=== PATIENT | female | born 1990 | race Caucasian/White ===

== ENCOUNTER → 2016-05-22 | Outpatient (CLI) | payer OTHER ==
[~2016-05-22] MED LIST: BUDE0.09; DICY10CA12 PO; HYDR-5688 PO; ONDA4TAB10 SL; ONDA4TAB46 PO; PNT500 PO; PRED10TA PO
[2016-05-22 10:00] LABS: BASO % 0.3 %; BASO ABS # 0.02 K/uL (0-0.2); COMPLETE YES; EOS % 2.4 %; HEMATOCRIT 37.2 % (37-47); IG% 0.2 %; LYMPH % 32.6 %; LYMPH ABS # 1.93 K/uL (1.2-3.4); MEAN CELL VOLUME 93.2 fL (80-100); MEAN CORPUSCULAR HEMOGLOBIN 31.6 pg (25-34); MEAN CORPUSCULAR HGB CONC 33.9 g/dl (32-36); MEAN PLATELET VOLUME 10.8 fL (7.4-10.4); MONO % 8.6 %; NEUT % 55.9 %; PLATELET COUNT 193 K/uL (130-400); RED BLOOD COUNT 3.99 M/uL (4.2-5.4); WHITE BLOOD COUNT 5.92 K/uL (4.8-10.8)
[2016-05-22 10:09] LABS: ALT/SGPT 22 U/L (12-78); AST/SGOT 19 U/L (15-37); BLOOD UREA NITROGEN 9 mg/dl (7-18); BUN/CREATININE RATIO 12.1 (10-20); CALCIUM 8.8 mg/dl (8.5-10.1); CARBON DIOXIDE 32 mmol/L (21-32); CHLORIDE 108 mmol/L (98-107); CREATININE 0.77 mg/dl (0.60-1.20); GLUCOSE 74 mg/dl (70-99); POTASSIUM 3.9 mmol/L (3.5-5.1); SODIUM 143 mmol/L (136-145)
[2016-05-22 10:11] LABS: ALB/GLOB RATIO 1.3 (0.9-2); ALKALINE PHOSPHATASE 45 U/L (45-117); C-REACTIVE PROTEIN < 0.29 mg/dl (0-0.29)
== END | disposition home or self-care (01) ==
LOC: C.LAB1850 09:10
PROVIDERS: ATTEND Registered Nurse
DX: K62.5 Hemorrhage of anus and rectum (principal)

== ENCOUNTER → 2016-09-26 | Outpatient (CLI) | payer OTHER ==
[2016-09-26 10:28] LABS: BASO ABS # 0.05 K/uL (0-0.2); COMPLETE YES; EOS % 1.4 %; LYMPH % 36.2 %; LYMPH ABS # 1.83 K/uL (1.2-3.4); MEAN CELL VOLUME 98.7 fL (80-100); MEAN CORPUSCULAR HEMOGLOBIN 32.7 pg (25-34); MEAN CORPUSCULAR HGB CONC 33.2 g/dl (32-36); MEAN PLATELET VOLUME 10.7 fL (7.4-10.4); MONO % 8.1 %; NEUT % 53.3 %; PLATELET COUNT 246 K/uL (130-400); RED BLOOD COUNT 3.85 M/uL (4.2-5.4); WHITE BLOOD COUNT 5.05 K/uL (4.8-10.8)
[2016-09-26 10:54] LABS: ALT/SGPT 19 U/L (12-78); BLOOD UREA NITROGEN 14 mg/dl (7-18); BUN/CREATININE RATIO 17.7 (10-20); C-REACTIVE PROTEIN < 0.29 mg/dl (0-0.29); CALCIUM 9.3 mg/dl (8.5-10.1); CARBON DIOXIDE 27 mmol/L (21-32); CHLORIDE 106 mmol/L (98-107); CREATININE 0.78 mg/dl (0.60-1.20); GLUCOSE 66 mg/dl (70-99); SODIUM 139 mmol/L (136-145)
[2016-09-26 10:57] LABS: ALB/GLOB RATIO 1.3 (0.9-2); ALKALINE PHOSPHATASE 47 U/L (45-117); AST/SGOT 12 U/L (15-37)
== END | disposition home or self-care (01) ==
LOC: C.LAB1850 09:18
PROVIDERS: ATTEND Internal Medicine
DX: K50.814 Crohn's disease of both small and large intestine with abscess (principal)

== ENCOUNTER → 2016-10-02 | Outpatient (CLI) | payer OTHER | END | disposition home or self-care (01) | LOC: C.LAB1850 10:22 | PROVIDERS: ATTEND Internal Medicine | DX: R10.9 Unspecified abdominal pain (principal); K50.814 Crohn's disease of both small and large intestine with abscess ==

== ENCOUNTER → 2016-11-06 | Outpatient (CLI) | payer OTHER ==
[~2016-11-06] MED LIST changes: +GADAVIST IV PRN; +GLUCAGON FOR INJ 1 MG VIAL IM SCH; +NURSING VERBAL MED ORDER ONE
--- NOTE | 2016-11-06 16:21 | DIAGNOSTIC IMAGING REPORT ---
MAGNETIC RESONANCE ENTEROGRAPHY ABD/PELVIS COMBO CLINICAL HISTORY: ABD PAIN,BRIGHT RED BLOOD PER RECTUM,CROHN'S DISEASE COMPARISON STUDY: CT scan dated 01/22/2016 FINDINGS: Imaging was performed in the coronal and axial planes before and after the administration of 7.3 cc of intravenous Gadavist. 1 mg of intramuscular glucagon was administered. No hepatic or splenic masses are visualized. No gallbladder abnormalities are visualized. No pancreatic masses are visualized. No adrenal masses are visualized. No renal masses are visualized. No uterine masses are visualized. Normal bilateral ovarian follicles are visualized. There is no pathologic adenopathy. There are no transition zone to indicate bowel obstruction. There is very minimal bowel wall hyperenhancement of the terminal ileum. There is a stricture of the terminal ileum approximately 4 cm proximal to the ileocecal valve. The findings are consistent with the clinical diagnosis of Crohn's disease. No fistula are demonstrated. There are no fluid collections to indicate an abscess. There is a linear focus of hyperenhancement within the left medial gluteal fold. This may represent a small sinus tract. This is in the area of the previously suspected perianal abscess. IMPRESSION: 1. Interval resolution of the previously identified perianal abscess. There is a linear focus of hyperenhancement within the left medial gluteal fold which may represent a residual small sinus tract versus scar 2. Mild bowel wall hyperenhancement of the terminal ileum. Stricture the terminal ileum 4 cm proximal to the ileocecal valve. The findings are consistent with the clinical diagnosis of Crohn's disease 3. No fistulae are visualized 4. No evidence of abscess Electronically signed by: José Maurice M.D. 11/06/2016 4:20 PM Dictated Date/Time: 11/06/2016 4:08 PM
== END | disposition home or self-care (01) ==
LOC: C.MRI 13:47
PROVIDERS: ATTEND Registered Nurse
DX: R10.9 Unspecified abdominal pain (principal); K62.5 Hemorrhage of anus and rectum; K50.814 Crohn's disease of both small and large intestine with abscess; R19.7 Diarrhea, unspecified

== ENCOUNTER 2016-12-07 18:45 | Emergency (ER) | payer OTHER ==
[~2016-12-07] VITALS: Ht 162.6 cm; Wt 72.2 kg
[2016-12-07 18:49] VITALS: TEMP 37; Ht 162.6 cm; Wt 72.2 kg
[2016-12-07] MEDS ORDERED: ONDANSETRON INJ 2 MG/ML 2 ML VIAL IV STA ×2 (19:38→22:55)
[2016-12-07] MEDS ORDERED: SODIUM CHLORIDE 0.9% 1000ML 1,000 ML IV STA (19:38)
[2016-12-07] MEDS ORDERED: MoRPHine SULFATE 4 MG/ML 1 ML CARP\\VIAL IV STA (19:38)
[2016-12-07 20:18] LABS: BASO % 0.3 %; BASO ABS # 0.02 K/uL (0-0.2); COMPLETE YES; HEMATOCRIT 41.1 % (37-47); IG% 0.1 %; LYMPH % 35.4 %; LYMPH ABS # 2.64 K/uL (1.2-3.4); MEAN CELL VOLUME 98.8 fL (80-100); MEAN CORPUSCULAR HEMOGLOBIN 33.2 pg (25-34); MEAN CORPUSCULAR HGB CONC 33.6 g/dl (32-36); MEAN PLATELET VOLUME 10.8 fL (7.4-10.4); MONO % 6.3 %; NEUT % 55.9 %; PLATELET COUNT 212 K/uL (130-400); RED BLOOD COUNT 4.16 M/uL (4.2-5.4); WHITE BLOOD COUNT 7.46 K/uL (4.8-10.8)
[2016-12-07 20:30] LABS: URINE APPEARANCE CLEAR (CLEAR); URINE BILIRUBIN NEG (NEG); URINE COLOR YELLOW; URINE EPITHELIAL CELL AUTO 20-30 /lpf (0-5); URINE NITRITE NEG (NEG); URINE SPECIFIC GRAVITY 1.013 (1.000-1.030); UROBILINOGEN NEG (NEG)
[2016-12-07] MEDS ORDERED: DICY10CA12 PO (20:33)
[2016-12-07] MEDS ORDERED: BUDE0.09 (20:33)
[2016-12-07] MEDS ORDERED: ONDA4TAB46 PO (20:33)
[2016-12-07] MEDS ORDERED: PNT500 PO (20:33)
[2016-12-07 20:34] LABS: MANUAL MICROSCOPIC REQUIRED? NO; REVIEW REQ? YES
[2016-12-07 20:41] LABS: ZZUR CULT IF INDIC CLEAN CATCH NO
[2016-12-07 20:44] LABS: ALT/SGPT 23 U/L (12-78); BLOOD UREA NITROGEN 14 mg/dl (7-18); C-REACTIVE PROTEIN < 0.29 mg/dl (0-0.29); CALCIUM 9.1 mg/dl (8.5-10.1); CARBON DIOXIDE 26 mmol/L (21-32); CHLORIDE 106 mmol/L (98-107); CREATININE 0.85 mg/dl (0.60-1.20); GLUCOSE 80 mg/dl (70-99); POTASSIUM 3.8 mmol/L (3.5-5.1); SODIUM 138 mmol/L (136-145)
[2016-12-07 20:47] LABS: ALKALINE PHOSPHATASE 43 U/L (45-117); AST/SGOT 18 U/L (15-37)
--- NOTE | 2016-12-07 22:31 | EMERGENCY ROOM VISIT NOTE ---
History First contact with patient: 19:27 Chief Complaint: ABDOMINAL PAIN Stated Complaint: CROHNS/ULCERATIVE COLITIS, LOWER ABD/RECTAL PAIN Nursing Triage Summary: Low abd and rectal pain. Hx of crohn's and ulcerative colitis. Pt states she has not been able to get her medications since Thursday as they ran out History of Present Illness The patient is a 26 year old female who presents to the Emergency Room with complaints of generalized lower abdominal pain that started yesterday. She states she has a history of Crohn's disease that was diagnosed approximately one year ago. She is followed by GI for this. She states she recently completed an 8 week course of budesonide. She states that she is on Pentasa for management, states she ran out of this 2 days ago and has been having issues getting a refill due to her insurance refusing the medication. She has been unable to speak with her GI doctor regarding this due to it being over the weekend. She states since yesterday she has been having some low abdominal pain and increased diarrhea, she states 8-12 episodes of diarrhea a day. She states the diarrhea is not bloody or coffee grounds appearing. She has some associated nausea, but denies vomiting, denies fevers and chills. She also states a history of a stricture which was diagnosed recently on MRI. She is scheduled for an appointment with colorectal surgery in 2 days to establish care with them. She denies any chest pain, shortness of breath, dizziness or passing out, dysuria or urinary frequency, rash. Review of Systems A complete 10 point review of systems was reviewed with the patient with pertinent positives and negatives as per history of present illness. All else were negative. Past Medical/Surgical History Medical Problems: (1) Asthma (2) PNA (pneumonia) Surgical Problems: (1) S/P tonsillectomy , Crohn's disease Family History FH: Crohn's disease FH: diabetes mellitus Social History Smoking Status: Never Smoker Alcohol Use: none Drug Use: none Marital Status: Housing Status: lives with family Occupation Status: employed Current/Historical Medications Scheduled Dicyclomine Hcl (Dicyclomine Hcl), 1 CAP PO TID Ondasetron Odt (Zofran Odt), 4 MG SL Q6H Scheduled PRN Hydrocodone/Acetaminophen 5MG/325MG ([place] 5MG/325MG), 1-2 TABLET PO Q6H PRN for Pain Ondansetron Hcl (Zofran), 4 MG PO for Nausea Miscellaneous Medications Budesonide (Budesonide) Mesalamine (Pentasa), 500 MG PO Allergies IV contrast dye Physical Exam Vital Signs Date Time Temp Pulse Resp B/P (MAP) Pulse Ox O2 Delivery O2 Flow Rate FiO2 12/07/16 22:51 56 18 104/65 96 Room Air 12/07/16 20:43 54 16 114/74 97 Room Air 12/07/16 20:35 56 12/07/16 19:08 62 18 123/70 100 Room Air 12/07/16 18:49 37.0 75 16 129/83 100 Room Air Pain Rating (0-10): 4.0 Physical Exam CONSTITUTIONAL: No acute distress. Dehydrated. Well appearing and well nourished. Alert and oriented X 4 with normal affect. HEENT: Normocephalic, atraumatic. Pupils equal, round and reactive to light, EOMI. TMs normal. Pharynx normal. Dry mucous membranes. NECK: Supple, full active range of motion without discomfort. RESPIRATORY: Clear to auscultation bilaterally with no wheezing, crackles, rhonchi or stridor. Equal expansion bilaterally. CARDIOVASCULAR: Regular rate and rhythm with no murmurs, rubs or gallops. Normal peripheral perfusion. No edema. GASTROINTESTINAL: Mild, diffuse lower abdominal tenderness to palpation. No rebound tenderness, no guarding. Abdomen is soft and nondistended. Active bowel sounds present in all 4 quadrants. MUSCULOSKELETAL: Full range of motion of all joints without discomfort. INTEGUMENTARY: No rash or other significant dermatologic conditions noted. NEUROLOGIC: Cranial nerves II-XII grossly intact. No focal neurologic deficits noted. Medical Decision & Procedures ER Provider Diagnostic Interpretation: ABD/PELVIS ORAL CONT ONLY CT DOSE: 294.87 mGy.cm HISTORY: Crohn's disease eval Crohn's flare, obstruction, abscess TECHNIQUE: Multiaxial CT images of the abdomen and pelvis were performed following the use of oral contrast. A dose lowering technique was utilized adhering to the principles of ALARA. COMPARISON STUDY: Enterography 11/06/2016 FINDINGS: Lung bases are clear. Liver spleen and coursing kidneys are unremarkable. The small bowel as well as colonic pattern is grossly unremarkable. There is no evidence for abscess or collection. Findings of mild wall edema of the distal ileum. No significant fistulous tract is identified. There is no stricture or obstructive configuration. Bladder is midline. Uterus is anteflexed. Intrauterine device is present. There is no significant free fluid within the pelvic cul-de-sac. IMPRESSION: 1. Segmental moderate wall thickening of the distal ileum 2. The appearance is suggestive of an inflammatory bowel process such as Crohn's disease. 3. No evidence for abscess collection or obstruction. 4. Normal appendix. 5. Study is otherwise unremarkable. Laboratory Results 12/07/16 20:00 Red Blood Count 4.16, Mean Corpuscular Volume 98.8, Mean Corpuscular Hemoglobin 33.2, Mean Corpuscular Hemoglobin Concent 33.6, Mean Platelet Volume 10.8, Neutrophils (%) (Auto) 55.9, Lymphocytes (%) (Auto) 35.4, Monocytes (%) (Auto) 6.3, Eosinophils (%) (Auto) 2.0, Basophils (%) (Auto) 0.3, Neutrophils # (Auto) 4.17, Lymphocytes # (Auto) 2.64, Monocytes # (Auto) 0.47, Eosinophils # (Auto) 0.15, Basophils # (Auto) 0.02 12/07/16 20:00 Test 12/07/16 00:00 12/07/16 19:14 12/07/16 20:00 Urine Test NEG (NEG) Urine Color YELLOW Urine Appearance CLEAR (CLEAR) Urine pH 6.0 (4.5-7.5) Urine Specific [place] 1.013 (1.000-1.030) Urine Protein NEG (NEG) Urine Glucose (UA) NEG (NEG) Urine Ketones NEG (NEG) Urine Occult Blood NEG (NEG) Urine Nitrite NEG (NEG) Urine Bilirubin NEG (NEG) Urine Urobilinogen NEG (NEG) Urine Leukocyte Esterase SMALL (NEG) Urine WBC (Auto) 5-10 /hpf (0-5) Urine RBC (Auto) 0-4 /hpf (0-4) Urine Hyaline Casts (Auto) 1-5 /lpf (0-5) Urine Epithelial Cells (Auto) 20-30 /lpf (0-5) Urine Bacteria (Auto) NEG (NEG) Urine Yeast (Auto) (NONE PRSENT) White Blood Count 7.46 K/uL (4.8-10.8) Red Blood Count 4.16 M/uL (4.2-5.4) Hemoglobin 13.8 g/dL (12.0-16.0) Hematocrit 41.1 % (37-47) Mean Corpuscular Volume 98.8 fL (80-100) Mean Corpuscular Hemoglobin 33.2 pg (25-34) Mean Corpuscular Hemoglobin Concent 33.6 g/dl (32-36) Platelet Count 212 K/uL (130-400) Mean Platelet Volume 10.8 fL (7.4-10.4) Neutrophils (%) (Auto) 55.9 % Lymphocytes (%) (Auto) 35.4 % Monocytes (%) (Auto) 6.3 % Eosinophils (%) (Auto) 2.0 % Basophils (%) (Auto) 0.3 % Neutrophils # (Auto) 4.17 K/uL (1.4-6.5) Lymphocytes # (Auto) 2.64 K/uL (1.2-3.4) Monocytes # (Auto) 0.47 K/uL (0.11-0.59) Eosinophils # (Auto) 0.15 K/uL (0-0.5) Basophils # (Auto) 0.02 K/uL (0-0.2) RDW Standard Deviation 45.0 fL (36.4-46.3) RDW Coefficient of Variation 12.4 % (11.5-14.5) Immature Granulocyte % (Auto) 0.1 % Immature Granulocyte # (Auto) 0.01 K/uL (0.00-0.02) Erythrocyte Sedimentation Rate 2 mm/hr (0-21) Anion Gap 6.0 mmol/L (3-11) Est Creatinine Clear Calc Drug Dose 98.6 ml/min Estimated GFR () 110.4 Estimated GFR (Non- 95.2 BUN/Creatinine Ratio 16.0 (10-20) Calcium Level 9.1 mg/dl (8.5-10.1) Total Bilirubin 0.4 mg/dl (0.2-1) Direct Bilirubin 0.1 mg/dl (0-0.2) Aspartate Amino Transf (AST/SGOT) 18 U/L (15-37) Alanine Aminotransferase (ALT/SGPT) 23 U/L (12-78) Alkaline Phosphatase 43 U/L (45-117) C-Reactive Protein < 0.29 mg/dl (0-0.29) Total Protein 7.4 gm/dl (6.4-8.2) Albumin 4.1 gm/dl (3.4-5.0) Lipase 84 U/L (73-393) Medications Administered Medications (Trade) Dose Ordered Sig/Natalio Route Start Time Stop Time Status Last Admin Dose Admin Sodium Chloride 1,000 ml @ 999 mls/hr Q1H1M STAT IV 12/07/16 19:38 12/07/16 20:38 DC 12/07/16 19:38 999 MLS/HR Ondansetron HCl (Zofran Inj) 4 mg NOW STAT IV 12/07/16 19:38 12/07/16 19:41 DC 12/07/16 20:10 4 MG Morphine Sulfate (MoRPHine SULFATE INJ) 4 mg NOW STAT IV 12/07/16 19:38 12/07/16 19:41 DC 12/07/16 20:11 4 MG Ondansetron HCl (Zofran Inj) 4 mg NOW STAT IV 12/07/16 22:55 12/07/16 22:56 DC 12/07/16 22:59 4 MG Acetaminophen/ Hydrocodone Bitart ([place] 5/325 Tab) 1 tab NOW STAT PO 12/07/16 23:04 12/07/16 23:05 DC 12/07/16 23:13 1 TAB Medical Decision CC: Patient presenting with complaint of abdominal pain, nausea Interpretation of Labs: No leukocytosis, no anemia, no significant joint abnormalities, normal renal function, normal liver enzymes and lipase, ESR and CRP within normal limits. Small amount of leukocyte esterase on UA, no bacteria. Negative urine . Differential Diagnosis: Includes, but not limited to flare of Crohn's disease, colitis, enterocolitis, diverticulitis, gastroenteritis, intestinal abscess, dehydration, among others. Medication Reconciliation: I attest that I have personally reviewed the patient' s current medication list. Vital signs review: I reviewed the patient's vital signs and interpret them as follows: T: Afebrile; BP: Normotensive; HR: Within normal limits; RR: Within normal limits; Pulse Ox: Within normal limits on room air. Blood pressure screening: The patient was found to have normal blood pressure on screening and does not require follow-up for repeat blood pressure check. Summary: Patient was evaluated at bedside, history of physical exam performed. Patient is alert and in no acute distress, resting comfortably in the stretcher. She does have mild diffuse lower abdominal tenderness on exam, no rebound tenderness or guarding. Orders were placed at bedside for labs, UA and urine , IV fluids for hydration, IV morphine and Zofran for pain and nausea, CT abdomen and pelvis with oral contrast to evaluate for sequela of Crohn's disease. IV contrast was not used due to patient's report of anaphylaxis. Patient discussed with Dr. Garcia, who agrees with my assessment and plan. Labs reviewed as above, no acute abnormalities, specifically no leukocytosis or elevated inflammatory markers. CT abdomen and pelvis reviewed, and elements of mild Crohn's disease noted, no acute inflammation or infection, no abscess or other concerns. Patient reassessed multiple times throughout ED stay, she reports improved pain and nausea, she is tolerating PO fluids. I did provide prescription for Zofran and small amount of [place] for pain management to get her through to her appointment with colorectal surgery on Thursday. I updated her on all results and plan for discharge home. I strongly encouraged her to call her GI doctor tomorrow to discuss the issues with her insurance company and refilling her medications. I also strongly urged her to keep her appointment on Thursday with colorectal surgery. She verbalized understanding and agreed to do this. I also discussed return precautions with the patient, she verbalized understanding. Patient was discharged home in stable condition and ambulatory. Medication Reconcilliation Current Medication List: was personally reviewed by me Blood Pressure Screening Patient's blood pressure: Elevated blood pressure Blood pressure disposition: Elevated BP felt to be situational Impression Primary Impression: Abdominal pain Additional Impression: Nausea Departure Information Dispostion Home / Self-Care Condition GOOD Prescriptions Ondasetron Odt (ZOFRAN ODT) 4 Mg Tab 4 MG SL Q6H for Nausea, #6 TAB Prov: Pamela Wolf CRNP 12/07/16 Hydrocodone/Acetaminophen 5MG/325MG ([place] 5MG/325MG) Tab 1-2 TABLET PO Q6H Y for Pain for 2 Days, #16 TAB For Initial Treatment Prov: Pamela Wolf CRNP 12/07/16 Referrals No Doctor, Assigned Forms HOME CARE DOCUMENTATION FORM, IMPORTANT VISIT INFORMATION Patient Instructions ED Inflam Bowel Disease Lizzy, My [facility] Additional Instructions You have been treated in the Emergency Department your Abdominal Pain. Laboratory results and imaging studies have ruled out any emergent causes for your abdominal pain which would warrant admission or surgery. You have been prescribed [place] to be used for severe pain. This is a narcotic medication. You cannot drive or consume alcohol while on this medicine. This medicine should only be used for pain that cannot be controlled with over-the- counter pain medicines. You have been prescribed Zofran to be used for any nausea or vomiting. Take as prescribed. For pain control, you can use the following [id number] medicines (if >12 yo): - Regular strength (325mg/tab) Tylenol (acetaminophen) 2 tabs every 4-6 hours as needed. Do not exceed 10 tablets in a 24 hour period. Avoid taking more than 3000 of Tylenol per day. This includes any other sources of acetaminophen you may take on a regular basis. Drink plenty of water and stay well hydrated. Call your GI doctor first thing tomorrow to discuss the issues regarding your prescription medication for your Crohn's disease. Keep your scheduled appointment on Thursday with the colorectal surgeon for further evaluation. Return to the emergency department if your symptoms worsen, including severe worsening pain, fevers/chills, worsening nausea/vomiting, vomiting blood, blood in your stool or urine, or any other concerns. Work Instructions Return To Work: 2 days Problem Qualifiers Primary Impression: Abdominal pain Abdominal location: lower abdomen, unspecified Qualified Codes: R10.30 - Lower abdominal pain, unspecified
--- NOTE | 2016-12-07 22:36 | DIAGNOSTIC IMAGING REPORT ---
ABD/PELVIS ORAL CONT ONLY CT DOSE: 294.87 mGy.cm HISTORY: Crohn's disease eval Crohn's flare, obstruction, abscess TECHNIQUE: Multiaxial CT images of the abdomen and pelvis were performed following the use of oral contrast. A dose lowering technique was utilized adhering to the principles of ALARA. COMPARISON STUDY: Enterography 11/06/2016 FINDINGS: Lung bases are clear. Liver spleen and coursing kidneys are unremarkable. The small bowel as well as colonic pattern is grossly unremarkable. There is no evidence for abscess or collection. Findings of mild wall edema of the distal ileum. No significant fistulous tract is identified. There is no stricture or obstructive configuration. Bladder is midline. Uterus is anteflexed. Intrauterine device is present. There is no significant free fluid within the pelvic cul-de-sac. IMPRESSION: 1. Segmental moderate wall thickening of the distal ileum 2. The appearance is suggestive of an inflammatory bowel process such as Crohn's disease. 3. No evidence for abscess collection or obstruction. 4. Normal appendix. 5. Study is otherwise unremarkable. The above report was generated using voice recognition software. It may contain grammatical, syntax or spelling errors. Electronically signed by: Qamar Cano M.D. 12/07/2016 10:35 PM Dictated Date/Time: 12/07/2016 10:31 PM
[2016-12-07 22:51] VITALS: BP 104/65; PULSE 56; O2SAT 96
[2016-12-07] MEDS ORDERED: HYDROCODONE/ACETAMOPHEN 5/325MG TAB PO STA (23:04)
[2016-12-07] MEDS ORDERED: HYDR-5688 PO (23:07)
[2016-12-07] MEDS ORDERED: ONDA4TAB10 SL (23:07)
[2016-12-12] MEDS ORDERED: PRED10TA PO (10:25)
== END 2016-12-07 23:20 | disposition home or self-care (01) ==
LOC: C.EDB 18:47
DX: R10.84 Generalized abdominal pain (principal); R11.0 Nausea; J45.909 Unspecified asthma, uncomplicated; K50.80 Crohn's disease of both small and large intestine without complications; Z98.890 Other specified postprocedural states; Z79.899 Other long term (current) drug therapy; Z91.041 Radiographic dye allergy status

== ENCOUNTER → 2016-12-25 | Day surgery (SDC) | payer OTHER ==
[2016-12-12 10:25] VITALS: Ht 162.6 cm; Wt 75.0 kg
[~2016-12-25] VITALS: Ht 162.6 cm; Wt 75.0 kg
[~2016-12-25] MED LIST changes: -BUDE0.09; -DICY10CA12 PO; -GADAVIST IV PRN; -GLUCAGON FOR INJ 1 MG VIAL IM SCH; -HYDR-5688 PO; +MIDAZOLAM HCL 1 MG/ML 2ML VIAL ONE; -NURSING VERBAL MED ORDER ONE; -ONDA4TAB10 SL; -ONDA4TAB46 PO; +ONDANSETRON INJ 2 MG/ML 2 ML VIAL ONE; -PNT500 PO; +PROPOFOL IV EMULSION 10 MG/ML 20 ML VIAL IV ONE; +SODIUM CHLORIDE 0.9% 500ML 500 ML IV ONE
[2016-12-25 13:49] VITALS: TEMP 36.8
--- NOTE | 2016-12-25 14:38 | Endo History and Physical ---
History & Physical Date of Service: Dec 25, 2016. Chief Complaint: Crohns Referring Physician: Anna History of Present Illness 26 yo CF who presents for colonoscopy secondary to Crohn's Disease. Past Surgical History Hx Cardiac Surgery: No Hx Internal Defibrillator: No Hx Pacemaker: No Hx Abdominal Surgery: No Hx of Implantable Prosthesis: No Hx Post-Op Nausea and Vomiting: No Hx Cancer Surgery: No Hx Thoracic Surgery: No Hx Orthopedic: No Hx Urinary Tract Surgery: No Family History IBD Social History Smoking Status: Never Smoker Hx Substance Use: No Hx Alcohol Use: Yes (OCCASIONAL) Allergies Coded Allergies: Iodinated Diagnostic Agents (Verified Allergy, Unknown, COUGHING, RESP REACTION, 12/12/16) Current Medications Reported Home Medications Medications Dose Route/Sig Max Daily Dose Days Date Category Dose Instructions Prednisone 10 Mg Tab 3 Tabs PO QAM 12/12/16 Reported WILL COMPLETE 12-23-16 Vital Signs Weight (Kilograms): 75 Height (Feet): 5 Height (Inches): 4 Date Time Temp Pulse Resp B/P (MAP) Pulse Ox O2 Delivery O2 Flow Rate FiO2 12/25/16 13:49 36.8 81 16 118/68 (85) 97 Room Air Physical Exam General Appearance: WD/WN, no apparent distress Respiratory/Chest: Auscultation: breath sounds normal Cardiovascular: Heart Auscultation: RRR Abdomen: Bowel Sounds: normal Inspection & Palpation: soft, non-distended, no tenderness, guarding & rebound Assessment and Plan Assessment: 26 yo CF who presents for colonoscopy secondary to Crohn's Disease. Plan: Proceed with colonoscopy.
--- NOTE | 2016-12-25 15:14 | Anesthesiology Progress Note ---
Anesthesia Post Op Note Date & Time Dec 25, 2016 at 15:14 Vital Signs Pain Intensity: 4 Vital Signs Past 12 Hours Date Time Temp Pulse Resp B/P (MAP) Pulse Ox O2 Delivery O2 Flow Rate FiO2 12/25/16 13:49 36.8 81 16 118/68 (85) 97 Room Air Notes Mental Status: alert / awake / arousable, participated in evaluation Pt Amnestic to Procedure: Yes Nausea / Vomiting: adequately controlled Pain: adequately controlled Airway Patency, RR, SpO2: stable & adequate BP & HR: stable & adequate Hydration State: stable & adequate Anesthetic Complications: no major complications apparent
--- NOTE | 2016-12-25 15:14 | GI REPORT ---
Procedure Date: 12/25/2016 1:57 PM Procedure: Colonoscopy Indications: Disease activity assessment of Crohn's disease of the small bowel and colon Medicines: Monitored Anesthesia Care Complications: No immediate complications. Estimated Blood Loss: Estimated blood loss: none. Procedure: Pre-Anesthesia Assessment: - Prior to the procedure, a History and Physical was performed, and patient medications and allergies were reviewed. The patient's tolerance of previous anesthesia was also reviewed. The risks and benefits of the procedure and the sedation options and risks were discussed with the patient. All questions were answered, and informed consent was obtained. Prior Anticoagulants: The patient has taken no previous anticoagulant or antiplatelet agents. ASA Grade Assessment: II - A patient with mild systemic disease. After reviewing the risks and benefits, the patient was deemed in satisfactory condition to undergo the procedure. After I obtained informed consent, the scope was passed under direct vision. Throughout the procedure, the patient's blood pressure, pulse, and oxygen saturations were monitored continuously. The scope was introduced through the anus and advanced to the terminal ileum. The colonoscopy was performed without difficulty. The patient tolerated the procedure well. The quality of the bowel preparation was good. The terminal ileum, ileocecal valve, appendiceal orifice, and rectum were photographed. Findings: The terminal ileum appeared normal. Biopsies were taken with a cold forceps for histology. Inflammation characterized by pseudopolyps was found. The entire colon was spared. This was mild in severity. Biopsies were taken with a cold forceps for histology. Non-bleeding internal hemorrhoids were found during retroflexion. The hemorrhoids were small. Impression: - The examined portion of the ileum was normal. Biopsied. - Inflammation was found. Biopsied. - Non-bleeding internal hemorrhoids. Recommendation: - Resume previous diet. - Continue present medications. - Repeat colonoscopy for surveillance based on pathology results. - Return to GI office as previously scheduled. Senthil Miramontes DO 12/25/2016 3:13:54 PM This report has been signed electronically. Note Initiated On: 12/25/2016 1:57 PM I attest to the content of the Intraoperative Record and orders documented therein, exceptions below
--- NOTE | 2016-12-25 15:16 | Discharge Instructions ---
Endoscopy Patient Instructions Date / Procedure(s) Performed Dec 25, 2016. Colonoscopy Allergy Information Coded Allergies: Iodinated Diagnostic Agents (Verified Allergy, Unknown, COUGHING, RESP REACTION, 12/12/16) Discharge Date / Findings Dec 25, 2016. Random terminal ileum biopsies Random colon biopsies Internal hemorrhoids Medication Instructions OK to resume all medications today as prescribed Reported Home Medications Medications Dose Route/Sig Max Daily Dose Days Date Category Dose Instructions Prednisone 10 Mg Tab 3 Tabs PO QAM 12/12/16 Reported WILL COMPLETE 12-23-16 Provider Instructions Activity Restrictions - No exercising or heavy lifting for 24 hours. - Do not drink alcohol the day of the procedure. - Do not drive a car or operate machinery until the day after the procedure. - Do not make any important decisions or sign important papers in 24 hours after the procedure. Following Day: - Return to full activity which may include returning to work/school. Diet Start your diet with liquids and light foods (jello, soup, juice, toast). Then eat your usual diet if not nauseated. Treatment For Common After Affects For mild abdominal pain, bloating, or excessive gas: - Rest - Eat lightly - Lie on right side Follow-Up Information Follow-up with Anna as scheduled Anesthesia Information What You Should Know You have had a procedure that required some medicine to reduce anxiety and discomfort. This treatment is called moderate sedation. After receiving the treatment, you may be sleepy, but you will be able to breathe on your own. The effects of the treatment may last for several hours. Follow these instructions along with Activity/Diet recommendations noted above: * Do NOT do anything where dizziness or clumsiness would be dangerous. * Rest quietly at home today, then you can be up and about tomorrow. * Have a responsible person stay with you the rest of today. * You may have had an I.V. today. If so, you may take the dressing off later today. Recommendations Call your doctor if: * Trouble breathing * Continuous vomiting for more than 24 hours * Temperature above 101 degrees * Severe abdominal pain or bloating * Pain not relieved by pain medicine ordered * There is increased drainage or redness from any incision * A large amount of rectal bleeding greater than 2-3 tablespoons. (If you had a polyp/s removed or have hemorrhoids, a small amount of blood - from the rectum is to be expected.) * You have any unanswered questions or concerns. IN THE EVENT OF A SERIOUS EMERGENCY, GO TO THE NEAREST EMERGENCY ROOM Your discharge instructions were prepared by provider Senthil Miramontes. Patient Instructions Signature Page Delicia Estrada Patient (or Guardian) Signature/Date: I have read and understand the instructions given to me by my caregivers. Caregiver/RN/Doctor Signature/Date: The above-named patient and/or guardian has received patient instructions on this date. + Original Patient Signature Page (only) stays with chart. Please make copy for patient.
[2016-12-25 15:40] VITALS: BP 110/70; PULSE 61; O2SAT 100
== END | disposition home or self-care (01) ==
LOC: C.GI 13:21
PROVIDERS: ATTEND Internal Medicine
DX: K50.90 Crohn's disease, unspecified, without complications (principal); K64.8 Other hemorrhoids

== ENCOUNTER 2017-05-18 12:28 | Emergency (ER) | payer OTHER ==
[~2017-05-18] VITALS: Ht 162.6 cm; Wt 75.0 kg
[~2017-05-18 12:28] MED LIST changes: -MIDAZOLAM HCL 1 MG/ML 2ML VIAL ONE; -ONDANSETRON INJ 2 MG/ML 2 ML VIAL ONE; -PROPOFOL IV EMULSION 10 MG/ML 20 ML VIAL IV ONE; -SODIUM CHLORIDE 0.9% 500ML 500 ML IV ONE
[2017-05-18 12:37] VITALS: TEMP 36.7; Ht 162.6 cm; Wt 75.0 kg
[2017-05-18] MEDS ORDERED: RMCI INJ (12:59)
[2017-05-18] MEDS ORDERED: MoRPHine SULFATE 10 MG/ML CARP/VIAL IV STA (13:24)
[2017-05-18] MEDS ORDERED: ONDANSETRON INJ 2 MG/ML 2 ML VIAL IV STA (13:24)
--- NOTE | 2017-05-18 13:43 | EMERGENCY ROOM VISIT NOTE ---
History First contact with patient: 13:03 Chief Complaint: PELVIC PAIN Stated Complaint: PELVIC PAIN History of Present Illness The patient is a 26 year old female who presents to the Emergency Room via EMS with complaints of pelvic pain. The patient was sent from [facility]. She had a copper IUD removed today and has had severe pain since then. The patient reports that she had been having pelvic pain for several months. She was seen by [facility] 3 days ago and had an ultrasound which showed a malpositioned IUD. She had increased pain and spotting throughout the weekend and went to [facility] today to have the IUD removed. The pain has been significantly worse since then. It radiates into her back. She rates her discomfort an 8/10. The patient also has a history of Crohn's disease and had a bowel resection about 6 months ago. She has an ostomy and states she has had no issues with this. There have been no blood in the stools, urinary symptoms, fevers, nausea or vomiting. Review of Systems A complete 10 point review of systems was reviewed with the patient with pertinent positives and negatives as per history of present illness. All else were negative. Past Medical/Surgical History Medical Problems: (1) Asthma (2) PNA (pneumonia) Surgical Problems: (1) S/P tonsillectomy Family History FH: Crohn's disease FH: diabetes mellitus Social History Smoking Status: Never Smoker Alcohol Use: none Drug Use: none Marital Status: Housing Status: lives with family Occupation Status: employed Current/Historical Medications Scheduled Infliximab (Remicade), 1 DOSE INJ Q6WK Scheduled PRN Hydrocodone/Acetaminophen 5MG/325MG ([place] 5MG/325MG), 1-2 TABLET PO Q4H PRN for Pain Physical Exam Vital Signs Date Time Temp Pulse Resp B/P (MAP) Pulse Ox O2 Delivery O2 Flow Rate FiO2 05/18/17 15:15 69 16 120/80 100 Room Air 05/18/17 13:35 68 16 114/73 100 Room Air 05/18/17 12:37 36.7 86 18 127/80 96 Room Air Physical Exam VITALS: Vitals are noted on the nurse's note and reviewed by myself. Vital signs stable. GENERAL: This is a 26-year-old female, in no acute distress, nondiaphoretic, well-developed well-nourished. SKIN: The skin was without rashes. EARS: External auditory canals clear, tympanic membranes pearly morales without erythema or effusion bilaterally. EYES: Pupils equal round and reactive to light and accommodation. MOUTH: Mucous membranes moist. HEART: Regular rate and rhythm without murmurs gallops or rubs. LUNGS: Clear to auscultation bilaterally without wheezes, rales or rhonchi. ABDOMEN: Ostomy in the right lower quadrant with no evidence of surrounding infection, normal appearing stool. Positive bowel sounds x 4. Tenderness to light palpation across the lower abdomen with slight guarding in the left lower quadrant. PELVIC: Moderate amount of blood within the vaginal vault. Mild bleeding from the cervical office. No cervical or vaginal tears visualized. NEURO: Patient was alert and oriented to person place and time. Medical Decision & Procedures ER Provider Diagnostic Interpretation: ABDOMEN AND PELVIS CT WITHOUT CONTRAST FINDINGS: The lung bases are clear. No pneumoperitoneum. No pneumatosis. No fractures within the visualized osseous structures. Bilateral L5 spondylolysis. The unenhanced liver, spleen, adrenal glands, pancreas, gallbladder, and kidneys are unremarkable. No retroperitoneal lymphadenopathy. A few prominent ileocolic nodes which may be reactive. The bladder, uterus, and adnexa are unremarkable. Suboptimal evaluation for bowel pathology due to the lack of intravenous and oral contrast. However, there is no evidence for bowel obstruction. Postoperative changes consistent with right hemicolectomy. There is a right lower quadrant ileostomy. There may be minimal thickening/edema within the residual proximal colon at the hepatic flexure. This raises the possibility of a mild colitis. IMPRESSION: 1. The uterus and adnexa are unremarkable. No pneumoperitoneum identified to suggest a perforation. 2. Status post right hemicolectomy with a right lower quadrant ileostomy. There may be minimal thickening involving the residual proximal colon at the hepatic flexure. This raises the possibility of a mild colitis. Laboratory Results 05/18/17 13:30 Red Blood Count 4.21, Mean Corpuscular Volume 95.0, Mean Corpuscular Hemoglobin 32.5, Mean Corpuscular Hemoglobin Concent 34.3, Mean Platelet Volume 10.3, Neutrophils (%) (Auto) 67.0, Lymphocytes (%) (Auto) 22.3, Monocytes (%) (Auto) 5.9, Eosinophils (%) (Auto) 4.2, Basophils (%) (Auto) 0.5, Neutrophils # (Auto) 5.87, Lymphocytes # (Auto) 1.95, Monocytes # (Auto) 0.52, Eosinophils # (Auto) 0.37, Basophils # (Auto) 0.04 05/18/17 13:30 Test 05/18/17 13:30 05/18/17 14:35 White Blood Count 8.76 K/uL (4.8-10.8) Red Blood Count 4.21 M/uL (4.2-5.4) Hemoglobin 13.7 g/dL (12.0-16.0) Hematocrit 40.0 % (37-47) Mean Corpuscular Volume 95.0 fL (80-100) Mean Corpuscular Hemoglobin 32.5 pg (25-34) Mean Corpuscular Hemoglobin Concent 34.3 g/dl (32-36) Platelet Count 207 K/uL (130-400) Mean Platelet Volume 10.3 fL (7.4-10.4) Neutrophils (%) (Auto) 67.0 % Lymphocytes (%) (Auto) 22.3 % Monocytes (%) (Auto) 5.9 % Eosinophils (%) (Auto) 4.2 % Basophils (%) (Auto) 0.5 % Neutrophils # (Auto) 5.87 K/uL (1.4-6.5) Lymphocytes # (Auto) 1.95 K/uL (1.2-3.4) Monocytes # (Auto) 0.52 K/uL (0.11-0.59) Eosinophils # (Auto) 0.37 K/uL (0-0.5) Basophils # (Auto) 0.04 K/uL (0-0.2) RDW Standard Deviation 43.6 fL (36.4-46.3) RDW Coefficient of Variation 12.7 % (11.5-14.5) Immature Granulocyte % (Auto) 0.1 % Immature Granulocyte # (Auto) 0.01 K/uL (0.00-0.02) Anion Gap 8.0 mmol/L (3-11) Est Creatinine Clear Calc Drug Dose 104.0 ml/min Estimated GFR () 115.3 Estimated GFR (Non- 99.5 BUN/Creatinine Ratio 9.2 (10-20) Calcium Level 9.1 mg/dl (8.5-10.1) Total Bilirubin 0.4 mg/dl (0.2-1) Aspartate Amino Transf (AST/SGOT) 18 U/L (15-37) Alanine Aminotransferase (ALT/SGPT) 29 U/L (12-78) Alkaline Phosphatase 54 U/L (45-117) Total Protein 7.4 gm/dl (6.4-8.2) Albumin 4.0 gm/dl (3.4-5.0) Globulin 3.4 gm/dl (2.5-4.0) Albumin/Globulin Ratio 1.2 (0.9-2) Urine Color YELLOW Urine Appearance CLEAR (CLEAR) Urine pH 5.0 (4.5-7.5) Urine Specific [place] 1.009 (1.000-1.030) Urine Protein NEG (NEG) Urine Glucose (UA) NEG (NEG) Urine Ketones NEG (NEG) Urine Occult Blood 3+ (NEG) Urine Nitrite NEG (NEG) Urine Bilirubin NEG (NEG) Urine Urobilinogen NEG (NEG) Urine Leukocyte Esterase NEG (NEG) Urine WBC (Auto) 1-5 /hpf (0-5) Urine RBC (Auto) >30 /hpf (0-4) Urine Hyaline Casts (Auto) 0 /lpf (0-5) Urine Epithelial Cells (Auto) 5-10 /lpf (0-5) Urine Bacteria (Auto) NEG (NEG) Urine Test NEG (NEG) Medications Administered Medications (Trade) Dose Ordered Sig/Natalio Route Start Time Stop Time Status Last Admin Dose Admin Morphine Sulfate (MoRPHine SULFATE INJ) 6 mg NOW STAT IV 05/18/17 13:24 05/18/17 13:25 DC 05/18/17 13:41 6 MG Ondansetron HCl (Zofran Inj) 4 mg NOW STAT IV 05/18/17 13:24 05/18/17 13:25 DC 05/18/17 13:41 4 MG ED Course The patient was evaluated as above. Labs were drawn and IV access was obtained. Patient was medicated with 6 mg morphine IV and [address] of the abdomen and pelvis was performed and read by radiology as above. Patient was reevaluated and findings were discussed. Pelvic exam was performed at this time. Case was discussed with Dr. Hunt of [employer]. He recommended discharge home with close follow-up. Discharge instructions were reviewed with the patient. The patient verbalized understanding of my assessment and treatment plan and was discharged home in good condition. Medical Decision Differential diagnosis includes perforated viscus, pelvic inflammatory disease, among others. The patient is a 26-year-old female who presents today complaining of severe abdominal pain after IUD removal. I was able to obtain ultrasound results from [facility]. The patient had a pelvic ultrasound on 05/15/17. This showed a malpositioned IUD, in the mid body of the endometrial cavity with the left IUD arm into the myometrium. Labs revealed no leukocytosis, anemia or concerning electrolyte abnormalities. Urinalysis was not suggestive of infection. The patient was initially very uncomfortable and did require IV morphine for pain control. I was concerned about the possibility of perforation of the uterine wall. For this reason, CT scan was performed. This was reviewed by radiology and fortunately did not show any evidence of perforation. There was some slight bowel wall thickening, however clinically the patient's Crohn's has been very well controlled and advised her to follow up with her machine packager regarding this finding. Pelvic exam was performed which revealed some bleeding from the cervical os, but no significant abnormalities. I favor this pain was likely due to removal of the malpositioned IUD, which had been malpositioned as described. I did speak with the on-call [employer], Dr. Hunt, who did feel this was normal following malpositioned IUD removal and recommended that the patient follow-up either in their office or with [facility] at the end of the week. Patient was informed of this. She was given [employer] referral. She was advised to use a backup method of control until follow-up with [employer]. She is planning to use condoms. She was given a short course of Fanrock for pain and conservative measures were discussed. The patient's case was reviewed with Dr. Hale, ED attending physician, who agreed with my assessment and treatment plan. Based on the patient's presentation and work up, I feel the patient is stable for outpatient treatment. The patient was educated to return to the emergency department for any worsening of their current condition or new/concerning symptoms. She will follow up with [employer]/[facility]. [place] Drug Monitoring Program Search Results: patient reviewed within database, no issues identified Medication Reconcilliation Current Medication List: was personally reviewed by me Blood Pressure Screening Patient's blood pressure: Normal blood pressure Impression Primary Impression: Pelvic pain Departure Information Dispostion Home / Self-Care Condition GOOD Prescriptions Hydrocodone/Acetaminophen 5MG/325MG ([place] 5MG/325MG) Tab 1-2 TABLET PO Q4H Y for Pain, #15 TAB For Initial Treatment Prov: Leighann Goins PA-C 05/18/17 Referrals [facility] (PCP) Juan Hunt M.D. Patient Instructions My [facility] Additional Instructions You have been treated in the Emergency Department for your Pelvic Pain. Laboratory results and imaging studies have ruled out any emergent causes for your abdominal pain which would warrant admission or surgery. You have been prescribed Fan[place] to be used for pain control. This is a narcotic medication. You cannot drive or consume alcohol while on this medicine. This medicine should only be used for pain that cannot be controlled with over-the- counter pain medicines. For pain control, you can use the following [id number]-[id number] medicines (if >12 yo): - Regular strength (325mg/tab) Tylenol (acetaminophen) 2 tabs every 4-6 hours as needed. Do not exceed 12 tablets in a 24 hour period. Avoid taking more than 4 grams (4000 mg) of Tylenol per day. This includes any other sources of acetaminophen you may take on a regular basis. - Regular strength (200 mg/tab) Advil (ibuprofen) 3-4 tabs every 4-6 hours as needed. Do not exceed a dose of 3200 mg per day. Follow-up with [employer] or [facility] for a recheck this week. Return to the emergency department with abnormal vaginal discharge, fevers, worsening abdominal pain, vomiting or any other new/concerning symptoms.
[2017-05-18 13:50] LABS: BASO % 0.5 %; BASO ABS # 0.04 K/uL (0-0.2); EOS % 4.2 %; EOS ABS # 0.37 K/uL (0-0.5); HEMOGLOBIN 13.7 g/dL (12.0-16.0); IG# 0.01 K/uL (0.00-0.02); LYMPH % 22.3 %; LYMPH ABS # 1.95 K/uL (1.2-3.4); MEAN CORPUSCULAR HEMOGLOBIN 32.5 pg (25-34); MEAN CORPUSCULAR HGB CONC 34.3 g/dl (32-36); MEAN PLATELET VOLUME 10.3 fL (7.4-10.4); MONO % 5.9 %; MONO ABS # 0.52 K/uL (0.11-0.59); NEUT ABS # 5.87 K/uL (1.4-6.5); PLATELET COUNT 207 K/uL (130-400); RED CELL DISTRIBUTION WIDTH CV 12.7 % (11.5-14.5); RED CELL DISTRIBUTION WIDTH SD 43.6 fL (36.4-46.3); WHITE BLOOD COUNT 8.76 K/uL (4.8-10.8)
[2017-05-18 14:06] LABS: CALCIUM 9.1 mg/dl (8.5-10.1); CREATININE 0.82 mg/dl (0.60-1.20); POTASSIUM 3.7 mmol/L (3.5-5.1)
[2017-05-18 14:09] LABS: TOTAL PROTEIN 7.4 gm/dl (6.4-8.2)
--- NOTE | 2017-05-18 14:35 | DIAGNOSTIC IMAGING REPORT ---
ABDOMEN AND PELVIS CT WITHOUT CONTRAST CT DOSE: 311.76 mGy.cm HISTORY: removal of malpositioned IUD, pelvic pain, r/o perf TECHNIQUE: Multiaxial CT images of the abdomen and pelvis were performed without contrast. A dose lowering technique was utilized adhering to the principles of ALARA. COMPARISON STUDY: Abdomen and pelvis CT 12/07/2016. FINDINGS: The lung bases are clear. No pneumoperitoneum. No pneumatosis. No fractures within the visualized osseous structures. Bilateral L5 spondylolysis. The unenhanced liver, spleen, adrenal glands, pancreas, gallbladder, and kidneys are unremarkable. No retroperitoneal lymphadenopathy. A few prominent ileocolic nodes which may be reactive. The bladder, uterus, and adnexa are unremarkable. Suboptimal evaluation for bowel pathology due to the lack of intravenous and oral contrast. However, there is no evidence for bowel obstruction. Postoperative changes consistent with right hemicolectomy. There is a right lower quadrant ileostomy. There may be minimal thickening/edema within the residual proximal colon at the hepatic flexure. This raises the possibility of a mild colitis. IMPRESSION: 1. The uterus and adnexa are unremarkable. No pneumoperitoneum identified to suggest a perforation. 2. Status post right hemicolectomy with a right lower quadrant ileostomy. There may be minimal thickening involving the residual proximal colon at the hepatic flexure. This raises the possibility of a mild colitis. Electronically signed by: Hua Sauceda M.D. 05/18/2017 2:33 PM Dictated Date/Time: 05/18/2017 2:23 PM
[2017-05-18 15:15] VITALS: BP 120/80; PULSE 69; O2SAT 100
[2017-05-18] MEDS ORDERED: HYDR-5688 PO (15:32)
== END 2017-05-18 15:46 | disposition home or self-care (01) ==
LOC: EDBD 12:28 → C.EDC 12:30
DX: R10.2 Pelvic and perineal pain (principal); K50.90 Crohn's disease, unspecified, without complications; J45.909 Unspecified asthma, uncomplicated; Z93.2 Ileostomy status; Z83.79 Family history of other diseases of the digestive system; Z83.3 Family history of diabetes mellitus

== ENCOUNTER → 2017-06-17 | Day surgery (SDC) | payer OTHER ==
[2017-06-10 09:07] VITALS: BMI 28.0
[~2017-06-17] VITALS: Ht 162.6 cm; Wt 75.0 kg
[~2017-06-17] MED LIST changes: +HYDR-5688 PO; +LIDOCAINE HCL 2% 2 ML VIAL (20MG/ML) ONE; +MIDAZOLAM HCL 1 MG/ML 2ML VIAL ONE; +MULT-506 PO; -PRED10TA PO; +PROPOFOL IV EMULSION 10 MG/ML 20 ML VIAL IV ONE; +RMCI INJ; +SODIUM CHLORIDE 0.9% 500ML 500 ML IV ONE
[2017-06-17 11:55] VITALS: Ht 162.6 cm; Wt 75.0 kg
--- NOTE | 2017-06-17 12:22 | Endo History and Physical ---
History & Physical Date of Service: Jun 17, 2017. Chief Complaint: CROHNS Referring Physician: DR NARDA [facility] History of Present Illness 27 yo CF who presents for colonoscopy secondary to Crohn's disease. Past Surgical History Hx Cardiac Surgery: No Hx Internal Defibrillator: No Hx Pacemaker: No Hx Abdominal Surgery: Yes (COLON RESECTION/ILEOSTOMY, APPY) Hx of Implantable Prosthesis: No Hx Post-Op Nausea and Vomiting: No Hx Cancer Surgery: No Hx Thoracic Surgery: No Hx Orthopedic: No Hx Urinary Tract Surgery: No Family History IBD Social History Smoking Status: Never Smoker Hx Substance Use: No Hx Alcohol Use: Yes (OCCASIONAL) Allergies Coded Allergies: Prednisone (Unverified Allergy, Mild, HEART PALPITATIONS, 06/17/17) Iodinated Diagnostic Agents (Verified Allergy, Unknown, COUGHING, RESP REACTION, 06/10/17) Current Medications Reported Home Medications Medications Dose Route/Sig Max Daily Dose Days Date Category Dose Instructions Multivitamin (Multivitamins) Tab 1 Tab PO DAILY 06/10/17 Reported [place] 5MG/325MG (Acetaminophen/Hydrocodone Bitart) Tab 1-2 Tablet PO Q4H PRN 05/18/17 Rx For Initial Treatment Remicade (Infliximab) Unknown Strength Inj 1 Dose INJ Q6WK 05/18/17 Reported Vital Signs Weight (Kilograms): 75.00 Height (Feet): 5 Height (Inches): 4 Date Time Temp Pulse Resp B/P (MAP) Pulse Ox O2 Delivery O2 Flow Rate FiO2 06/17/17 11:53 36.4 92 20 121/84 (96) 100 Room Air Physical Exam General Appearance: WD/WN, no apparent distress Respiratory/Chest: Auscultation: breath sounds normal Cardiovascular: Heart Auscultation: RRR Abdomen: Bowel Sounds: normal Inspection & Palpation: soft, non-distended, no tenderness, guarding & rebound Assessment and Plan Assessment: 27 yo CF who presents for colonoscopy secondary to Crohn's disease. Plan: Proceed with colonoscopy.
--- NOTE | 2017-06-17 13:21 | Discharge Instructions ---
Endoscopy Patient Instructions Date / Procedure(s) Performed Jun 17, 2017. Colonoscopy Allergy Information Coded Allergies: Prednisone (Unverified Allergy, Mild, HEART PALPITATIONS, 06/17/17) Iodinated Diagnostic Agents (Verified Allergy, Unknown, COUGHING, RESP REACTION, 06/10/17) Discharge Date / Findings Jun 17, 2017. 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 Normal ileum via ileostomy Medication Instructions Stopped Medication(s): MULTIVITAMIN LAST DOSE 06/12/17 OK to resume all medications today as prescribed Reported Home Medications Medications Dose Route/Sig Max Daily Dose Days Date Category Dose Instructions Multivitamin (Multivitamins) Tab 1 Tab PO DAILY 06/10/17 Reported [place] 5MG/325MG (Acetaminophen/Hydrocodone Bitart) Tab 1-2 Tablet PO Q4H PRN 05/18/17 Rx For Initial Treatment Remicade (Infliximab) Unknown Strength Inj 1 Dose INJ Q6WK 05/18/17 Reported Provider Instructions Activity Restrictions - No exercising or heavy lifting for 24 hours. - Do not drink alcohol the day of the procedure. - Do not drive a car or operate machinery until the day after the procedure. - Do not make any important decisions or sign important papers in 24 hours after the procedure. Following Day: - Return to full activity which may include returning to work/school. Diet Start your diet with liquids and light foods (jello, soup, juice, toast). Then eat your usual diet if not nauseated. Treatment For Common After Affects For mild abdominal pain, bloating, or excessive gas: - Rest - Eat lightly - Lie on right side Follow-Up Information Follow-up with DR NARDA [facility] as scheduled Anesthesia Information What You Should Know You have had a procedure that required some medicine to reduce anxiety and discomfort. This treatment is called moderate sedation. After receiving the treatment, you may be sleepy, but you will be able to breathe on your own. The effects of the treatment may last for several hours. Follow these instructions along with Activity/Diet recommendations noted above: * Do NOT do anything where dizziness or clumsiness would be dangerous. * Rest quietly at home today, then you can be up and about tomorrow. * Have a responsible person stay with you the rest of today. * You may have had an I.V. today. If so, you may take the dressing off later today. Recommendations Call your doctor if: * Trouble breathing * Continuous vomiting for more than 24 hours * Temperature above 101 degrees * Severe abdominal pain or bloating * Pain not relieved by pain medicine ordered * There is increased drainage or redness from any incision * A large amount of rectal bleeding greater than 2-3 tablespoons. (If you had a polyp/s removed or have hemorrhoids, a small amount of blood - from the rectum is to be expected.) * You have any unanswered questions or concerns. IN THE EVENT OF A SERIOUS EMERGENCY, GO TO THE NEAREST EMERGENCY ROOM Your discharge instructions were prepared by provider Senthil Miramontes. Patient Instructions Signature Page Delicia Estrada Patient (or Guardian) Signature/Date: I have read and understand the instructions given to me by my caregivers. Caregiver/RN/Doctor Signature/Date: The above-named patient and/or guardian has received patient instructions on this date. + Original Patient Signature Page (only) stays with chart. Please make copy for patient.
[2017-06-17 13:49] VITALS: BP 123/74; PULSE 73; O2SAT 99
--- NOTE | 2017-06-17 13:54 | Anesthesiology Progress Note ---
Anesthesia Post Op Note Date & Time Jun 17, 2017 at 13:54 Vital Signs Pain Intensity: 0 Vital Signs Past 12 Hours Date Time Temp Pulse Resp B/P (MAP) Pulse Ox O2 Delivery O2 Flow Rate FiO2 06/17/17 13:49 73 20 123/74 (90) 99 Room Air 06/17/17 13:34 77 20 105/79 (88) 99 Room Air 06/17/17 13:19 88 20 118/68 (85) 90 Room Air 06/17/17 11:53 36.4 92 20 121/84 (96) 100 Room Air Notes Mental Status: alert / awake / arousable, participated in evaluation Pt Amnestic to Procedure: Yes Nausea / Vomiting: adequately controlled Pain: adequately controlled Airway Patency, RR, SpO2: stable & adequate BP & HR: stable & adequate Hydration State: stable & adequate Anesthetic Complications: no major complications apparent
--- NOTE | 2017-06-19 07:41 | GI REPORT ---
Procedure Date: 06/17/2017 12:47 PM Procedure: Ileoscopy Indications: Preoperative assessment for ileostomy take-down, Post-operative assessment Medicines: Monitored Anesthesia Care Complications: No immediate complications. Estimated Blood Loss: Estimated blood loss: none. Procedure: Pre-Anesthesia Assessment: - Prior to the procedure, a History and Physical was performed, and patient medications and allergies were reviewed. The patient's tolerance of previous anesthesia was also reviewed. The risks and benefits of the procedure and the sedation options and risks were discussed with the patient. All questions were answered, and informed consent was obtained. Prior Anticoagulants: The patient has taken no previous anticoagulant or antiplatelet agents. ASA Grade Assessment: II - A patient with mild systemic disease. After reviewing the risks and benefits, the patient was deemed in satisfactory condition to undergo the procedure. After I obtained informed consent, the scope was passed under direct vision. Throughout the procedure, the patient's blood pressure, pulse, and oxygen saturations were monitored continuously. The scope was introduced through the anus and advanced to the descending colon. The scope was then introduced through the ileostomy and advanced to the distal ileum. The ileoscopy was performed without difficulty. The patient tolerated the procedure well. The quality of the bowel preparation in the distal ileum was good, however, the colon was unprepped limiting visualization. Findings: The terminal ileum appeared normal. Patient is status-post colon resection with a surgical anastomosis. 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 There was some retained stool, which did interfere with visualization. -The examined portion of the ileum was normal. - No specimens collected. Recommendation: - Resume previous diet. - Continue present medications. - Return to Dr. Castillo as previously scheduled. Senthil Miramontes DO 06/19/2017 7:41:01 AM This report has been signed electronically. Note Initiated On: 06/17/2017 12:47 PM I attest to the content of the Intraoperative Record and orders documented therein, exceptions below
== END | disposition home or self-care (01) ==
LOC: C.GI 10:55
PROVIDERS: ATTEND Internal Medicine
DX: K50.90 Crohn's disease, unspecified, without complications (principal); J45.909 Unspecified asthma, uncomplicated; Z90.89 Acquired absence of other organs; Z91.041 Radiographic dye allergy status; Z79.899 Other long term (current) drug therapy

== ENCOUNTER 2017-11-01 11:43 | Emergency (ER) | payer OTHER ==
[~2017-11-01] VITALS: Ht 165.1 cm; Wt 80.8 kg
[~2017-11-01 11:43] MED LIST changes: -LIDOCAINE HCL 2% 2 ML VIAL (20MG/ML) ONE; -MIDAZOLAM HCL 1 MG/ML 2ML VIAL ONE; -PROPOFOL IV EMULSION 10 MG/ML 20 ML VIAL IV ONE; -SODIUM CHLORIDE 0.9% 500ML 500 ML IV ONE
[2017-11-01 11:50] VITALS: TEMP 37; Ht 165.1 cm; Wt 80.8 kg
[2017-11-01] MEDS ORDERED: OXYCODONE HCL IR 5 MG TAB (IMMEDIATE RELEASE) PO STA (12:04)
[2017-11-01] MEDS ORDERED: RANITIDINE HCL 50 MG/100 ML D5W IV STA (12:04)
[2017-11-01] MEDS ORDERED: DiphenhydrAMINE HCL 50 MG/ML VIAL IV STA (12:04)
[2017-11-01] MEDS ORDERED: SERT50TA PO (12:13)
[2017-11-01] MEDS ORDERED: TRAZ50TA35 PO (12:13)
[2017-11-01 12:30] LABS: BASO % 0.3 %; BASO ABS # 0.03 K/uL (0-0.2); EOS % 2.9 %; EOS ABS # 0.26 K/uL (0-0.5); HEMATOCRIT 40.7 % (37-47); HEMOGLOBIN 13.8 g/dL (12.0-16.0); IG# 0.01 K/uL (0.00-0.02); LYMPH % 19.8 %; LYMPH ABS # 1.75 K/uL (1.2-3.4); MEAN CELL VOLUME 96.7 fL (80-100); MEAN CORPUSCULAR HEMOGLOBIN 32.8 pg (25-34); MEAN CORPUSCULAR HGB CONC 33.9 g/dl (32-36); MEAN PLATELET VOLUME 10.7 fL (7.4-10.4); MONO % 6.2 %; MONO ABS # 0.55 K/uL (0.11-0.59); NEUT % 70.7 %; NEUT ABS # 6.22 K/uL (1.4-6.5); PLATELET COUNT 188 K/uL (130-400); RED CELL DISTRIBUTION WIDTH CV 12.6 % (11.5-14.5); WHITE BLOOD COUNT 8.82 K/uL (4.8-10.8)
--- NOTE | 2017-11-01 12:45 | DIAGNOSTIC IMAGING REPORT ---
CHEST 2 VIEWS ROUTINE CLINICAL HISTORY: Shortness of breath dyspnea COMPARISON STUDY: No previous studies for comparison. FINDINGS: The bones soft tissues and hemidiaphragms are normal. The cardiomediastinal silhouette is normal. The lungs are clear. The pulmonary vasculature is normal. IMPRESSION: Negative chest. The above report was generated using voice recognition software. It may contain grammatical, syntax or spelling errors. Electronically signed by: Qamar Cano M.D. 11/01/2017 12:43 PM Dictated Date/Time: 11/01/2017 12:43 PM
[2017-11-01 12:47] LABS: CALCIUM 8.6 mg/dl (8.5-10.1); CREATININE 0.8 mg/dl (0.60-1.20); POTASSIUM 3.9 mmol/L (3.5-5.1)
--- NOTE | 2017-11-01 16:01 | DIAGNOSTIC IMAGING REPORT ---
LUNG IMAGING VQ CLINICAL HISTORY: Chest pain. Dyspnea. COMPARISON: None TECHNIQUE: For the ventilation portion of this exam, 30.8 mCi of DTPA was inhaled at 3:51 PM. Immediately following inhalation, imaging of the chest was carried out in the anterior, posterior, left lateral, right lateral, LPO, RPO, STATELESS and SAMS projections. For the perfusion portion of exam, 6.4 mCi of technetium 99m MAA was injected IV at 3:55 PM. Immediately following injection, imaging of the chest was carried out in the same projections. FINDINGS: Uniform activity on all perfusion images. No segmental or subsegmental defects. Aerosol component of the study shows uniform ventilation throughout. There is no evidence for a ventilation/perfusion mismatch. IMPRESSION: Normal study The above report was generated using voice recognition software. It may contain grammatical, syntax or spelling errors. Electronically signed by: Qamar Cano M.D. 11/01/2017 4:00 PM Dictated Date/Time: 11/01/2017 3:58 PM
[2017-11-01] MEDS ORDERED: HYDR-5688 PO (16:20)
--- NOTE | 2017-11-01 16:22 | EMERGENCY ROOM VISIT NOTE ---
History First contact with patient: 11:57 Chief Complaint: SHORTNESS OF BREATH Stated Complaint: CHEST PAIN, TIGHTNESS, SWOLLEN/RED/ITCHY AREA, SOB History of Present Illness The patient is a 27 year old female who presents to the Emergency Room with complaints of shortness of breath. The patient states that she was placed on steroids on for her wisdom teeth and she took them and Thursday but she discontinued on I did not take them on Thursday or today due to Feeling heart palpitations, chest tightness and shortness of breath. She states she had a similar reaction in the past to prednisone. The patient also states that yesterday she had a red itchy rash on the lower sternum and in the epigastric region. Today it just looks swollen and is painful. She states it hurts to take in a deep breath. She took Tylenol for the pain without any relief. The patient cannot take NSAIDs. Review of Systems 10 system review was performed and was negative unless stated otherwise history of present illness. Past Medical/Surgical History Medical Problems: (1) Asthma (2) PNA (pneumonia) Surgical Problems: (1) S/P tonsillectomy Colon resection, perianal abscess removed, Crohn's disease Family History FH: Crohn's disease FH: diabetes mellitus Social History Smoking Status: Never Smoker Alcohol Use: none Drug Use: none Marital Status: Housing Status: lives with family Occupation Status: employed Current/Historical Medications Scheduled Infliximab (Remicade), 1 DOSE INJ Q8WK Multivitamin (Multivitamin), 1 TAB PO DAILY Sertraline (Zoloft), 75 MG PO DAILY Scheduled PRN Trazodone Hcl (Trazodone), 50 MG PO for Pain Physical Exam Vital Signs Date Time Temp Pulse Resp B/P (MAP) Pulse Ox O2 Delivery O2 Flow Rate FiO2 11/01/17 16:01 68 18 117/67 99 Room Air 11/01/17 14:39 68 18 104/69 98 Room Air 11/01/17 13:05 62 18 104/73 99 Room Air 11/01/17 12:25 100 Room Air 11/01/17 11:50 37.0 73 17 125/77 99 Room Air Physical Exam GENERAL: 27-year-old female appears in no acute distress. MENTAL Status: Alert and oriented 3. PHARYNX: No erythema or edema noted. Airway is adequate. NECK: Supple, no lymphadenopathy noted. No carotid bruits noted. LUNGS: Clear auscultation without wheezes rales or rhonchi. CARDIAC: Regular rate and rhythm without murmur. Pulses is full and equal throughout. CHEST WALL: There is edema but no erythema noted over the lower sternum and upper epigastric region. No rashes noted. The patient is tender to palpation in this area. Remainder chest wall is nontender. Medical Decision & Procedures ER Provider Diagnostic Interpretation: LUNG IMAGING VQ CLINICAL HISTORY: Chest pain. Dyspnea. COMPARISON: None TECHNIQUE: For the ventilation portion of this exam, 30.8 mCi of DTPA was inhaled at 3:51 PM. Immediately following inhalation, imaging of the chest was carried out in the anterior, posterior, left lateral, right lateral, LPO, RPO, MICRONESIAN and SAMS projections. For the perfusion portion of exam, 6.4 mCi of technetium 99m MAA was injected IV at 3:55 PM. Immediately following injection, imaging of the chest was carried out in the same projections. FINDINGS: Uniform activity on all perfusion images. No segmental or subsegmental defects. Aerosol component of the study shows uniform ventilation throughout. There is no evidence for a ventilation/perfusion mismatch. IMPRESSION: Normal study The above report was generated using voice recognition software. It may contain grammatical, syntax or spelling errors. Electronically signed by: Qamar Cano M.D. 11/01/2017 4:00 PM CHEST 2 VIEWS ROUTINE CLINICAL HISTORY: Shortness of breath dyspnea COMPARISON STUDY: No previous studies for comparison. FINDINGS: The bones soft tissues and hemidiaphragms are normal. The cardiomediastinal silhouette is normal. The lungs are clear. The pulmonary vasculature is normal. IMPRESSION: Negative chest. The above report was generated using voice recognition software. It may contain grammatical, syntax or spelling errors. Electronically signed by: Qamar Cano M.D. Laboratory Results 11/01/17 12:26 Red Blood Count 4.21, Mean Corpuscular Volume 96.7, Mean Corpuscular Hemoglobin 32.8, Mean Corpuscular Hemoglobin Concent 33.9, Mean Platelet Volume 10.7, Neutrophils (%) (Auto) 70.7, Lymphocytes (%) (Auto) 19.8, Monocytes (%) (Auto) 6.2, Eosinophils (%) (Auto) 2.9, Basophils (%) (Auto) 0.3, Neutrophils # (Auto) 6.22, Lymphocytes # (Auto) 1.75, Monocytes # (Auto) 0.55, Eosinophils # (Auto) 0.26, Basophils # (Auto) 0.03 11/01/17 12:26 Test 11/01/17 12:26 11/01/17 12:27 White Blood Count 8.82 K/uL (4.8-10.8) Red Blood Count 4.21 M/uL (4.2-5.4) Hemoglobin 13.8 g/dL (12.0-16.0) Hematocrit 40.7 % (37-47) Mean Corpuscular Volume 96.7 fL (80-100) Mean Corpuscular Hemoglobin 32.8 pg (25-34) Mean Corpuscular Hemoglobin Concent 33.9 g/dl (32-36) Platelet Count 188 K/uL (130-400) Mean Platelet Volume 10.7 fL (7.4-10.4) Neutrophils (%) (Auto) 70.7 % Lymphocytes (%) (Auto) 19.8 % Monocytes (%) (Auto) 6.2 % Eosinophils (%) (Auto) 2.9 % Basophils (%) (Auto) 0.3 % Neutrophils # (Auto) 6.22 K/uL (1.4-6.5) Lymphocytes # (Auto) 1.75 K/uL (1.2-3.4) Monocytes # (Auto) 0.55 K/uL (0.11-0.59) Eosinophils # (Auto) 0.26 K/uL (0-0.5) Basophils # (Auto) 0.03 K/uL (0-0.2) RDW Standard Deviation 44.0 fL (36.4-46.3) RDW Coefficient of Variation 12.6 % (11.5-14.5) Immature Granulocyte % (Auto) 0.1 % Immature Granulocyte # (Auto) 0.01 K/uL (0.00-0.02) Prothrombin Time 10.3 SECONDS (9.0-12.0) Prothromb Time International Ratio 1.0 (0.9-1.1) Activated Partial Thromboplast Time 25.0 SECONDS (21.0-31.0) Partial Thromboplastin Ratio 1.0 Anion Gap 5.0 mmol/L (3-11) Est Creatinine Clear Calc Drug Dose 111.9 ml/min Estimated GFR () 117.9 Estimated GFR (Non- 101.8 BUN/Creatinine Ratio 14.3 (10-20) Calcium Level 8.6 mg/dl (8.5-10.1) Bedside D-Dimer > 450 ng/mlFEU (0-450) Medications Administered Medications (Trade) Dose Ordered Sig/Natalio Route Start Time Stop Time Status Last Admin Dose Admin Ranitidine HCl (zANTac IV) 50 mg NOW STAT IV 11/01/17 12:04 11/01/17 12:07 DC 11/01/17 12:24 50 MG Diphenhydramine HCl (Benadryl Inj) 50 mg NOW STAT IV 11/01/17 12:04 11/01/17 12:07 DC 11/01/17 12:13 50 MG Oxycodone HCl (Roxicodone Immediate Rel Tab) 5 mg NOW STAT PO 11/01/17 12:04 11/01/17 12:07 DC 11/01/17 12:13 5 MG ED Course The patient was evaluated. IV access was obtained. CBC and differential, renal profile, coags, [id number] d-dimer was ordered. Chest x-ray was ordered interpreted by the radiologist and myself as above. The patient was given OxyIR 5 mg p.o., Benadryl 50 mg IV and Zantac 50 mg IV. Labs are reviewed. White count was normal. The patient's d-dimer was elevated at greater than 450. Since the patient has known allergies to iodinated contrast as well as prednisone I discussed the case with Dr. Frazier who agree with treatment plan. I contacted radiology about the possibility of getting a VQ scan on this patient. They stated that they could get the isotope and therefore a VQ scan was ordered. VQ scan was interpreted by the radiologist as above and was negative. The patient was informed of the findings. The patient was discharged home in stable condition. Medical Decision Differential diagnosis include PE, pleuritic chest pain, costochondritis, shingles, muscular strain, pneumonia [place] Drug Monitoring Program Search Results: patient reviewed within database Medication Reconcilliation Current Medication List: was personally reviewed by me Blood Pressure Screening Patient's blood pressure: Normal blood pressure Impression Primary Impression: Allergic reaction caused by a drug Additional Impression: Anterior chest wall pain Departure Information Dispostion Home / Self-Care Condition GOOD Prescriptions Hydrocodone/Acetaminophen 5MG/325MG ([place] 5MG/325MG) Tab 1-2 TABLET PO Q6 Y for Pain, #20 TAB For Initial Treatment Prov: Sunni Cano PA-C 11/01/17 Referrals [facility] (PCP) Forms HOME CARE DOCUMENTATION FORM, IMPORTANT VISIT INFORMATION Patient Instructions ED Allergic Reaction Drug Ch, ED Chest Wall Pain Costochond , [facility] Additional Instructions Take Benadryl 25 mg every 6 hours for the next 24 hours. Take [place] as needed for pain. Do not drive while taking the [place]. Observe closely for any rashes I described on your chest. If any should occur seek medical attention immediately. Follow-up with your family doctor in 2 days for recheck. If symptoms worsen in the interim, return to ER. Problem Qualifiers Primary Impression: Allergic reaction caused by a drug Encounter type: initial encounter Qualified Codes: T78.40XA - Allergy, unspecified, initial encounter
[2017-11-01 17:02] VITALS: BP 117/72; PULSE 72; O2SAT 99
== END 2017-11-01 17:00 | disposition home or self-care (01) ==
LOC: C.EDB 11:46 → C.EDA 17:00
DX: R07.89 Other chest pain (principal); T38.0X5A Adverse effect of glucocorticoids and synthetic analogues, initial encounter; J45.909 Unspecified asthma, uncomplicated; Z87.01 Personal history of pneumonia (recurrent); K50.90 Crohn's disease, unspecified, without complications; Z90.49 Acquired absence of other specified parts of digestive tract; Z83.79 Family history of other diseases of the digestive system; Z83.3 Family history of diabetes mellitus; Z79.899 Other long term (current) drug therapy; Z91.041 Radiographic dye allergy status; Z88.8 Allergy status to other drugs, medicaments and biological substances

== ENCOUNTER 2017-11-03 15:48 | Emergency (ER) | payer OTHER ==
[~2017-11-03] VITALS: Ht 165.1 cm; Wt 80.0 kg
[~2017-11-03 15:48] MED LIST changes: +SERT50TA PO; +TRAZ50TA35 PO
[2017-11-03 15:52] VITALS: TEMP 36.7; Ht 165.1 cm; Wt 80.0 kg
--- NOTE | 2017-11-03 16:19 | EMERGENCY ROOM VISIT NOTE ---
History Report prepared by Antonio: Houston Wood Under the Supervision of: Dr. Saul Chirinos M.D. First contact with patient: 16:04 Chief Complaint: CHEST PAIN Stated Complaint: PULSE IRREGULAR, CHEST PAIN Nursing Triage Summary: Patient presents to triage via wheelchair, states " and Thursday, I was taking oral Decadron for my wisdom teeth coming in. I started have having shortness of breath, chest pain, a feeling of itchiness in my chest and throat, and a cough. These symptoms started on Thursday. I was here on Thursday. I was told to take zantac and benadryl for an allergic reaction. I was told to follow up with my PCP in 2 days, which I did today. My symptoms are not improving at all. They did some tests on me but sent me here." History of Present Illness The patient is a 27 year old female with a past medical history of asthma, PNA, and Crohn's disease who presents to the ED with a cc of chest pain accompanied with shortness of breath beginning 2 days ago and staying constant. The patient states that she came to the ED on Thursday, November 01, with similar symptoms but returned after being told to do so by her PCP. She states that the symptoms began after taking steroids that were given to her because of wisdom tooth pain. The patient also states that her chest was sore to the touch and her sternum was swollen. The patient reports that she has an ostomy bad in her RLQ and that her urination and stool has been normal. She also states that she has a history of Crohn's disease in which she takes Remicade for and anxiety and depression in which she takes Zoloft for. The patient states that her LNMP was October 08 and that she has a hormonal IUD. She also reports of traveling to [place] two weeks ago via plane which included three flights each at 1.5 hours. Positive itchy and soar throat, dry cough and dizziness. Negative for smoker. Source of History: patient Onset: two days ago Position: chest Timing: constant Associated Symptoms: + chest pain, + SOB, No hematochezia, No urinary symptoms Review of Systems See HPI for pertinent positives and negatives. A total of ten systems were reviewed and were otherwise negative. Past Medical & Surgical Medical Problems: (1) Asthma (2) PNA (pneumonia) Surgical Problems: (1) S/P tonsillectomy Family History FH: Crohn's disease FH: diabetes mellitus Social History Smoking Status: Never Smoker Alcohol Use: none Drug Use: none Marital Status: Housing Status: lives with family Occupation Status: employed Current/Historical Medications Scheduled Infliximab (Remicade), 1 DOSE INJ Q8WK Multivitamin (Multivitamin), 1 TAB PO DAILY Sertraline (Zoloft), 75 MG PO DAILY Scheduled PRN Albuterol (Ventolin Hfa), 2 PUFFS INH QID PRN for SOB/Wheezing Hydrocodone/Acetaminophen 5MG/325MG ([place] 5MG/325MG), 1-2 TABLET PO Q6 PRN for Pain Trazodone Hcl (Trazodone), 50 MG PO for Pain Allergies Coded Allergies: Dexamethasone (Verified Allergy, Intermediate, CP, SOB, 11/03/17) Prednisone (Unverified Allergy, Mild, HEART PALPITATIONS, 11/03/17) Iodinated Diagnostic Agents (Verified Allergy, Unknown, COUGHING, RESP REACTION, 11/03/17) Physical Exam Vital Signs Date Time Temp Pulse Resp B/P (MAP) Pulse Ox O2 Delivery O2 Flow Rate FiO2 11/03/17 19:52 90 18 120/71 100 11/03/17 19:21 84 18 118/74 98 Room Air 11/03/17 19:18 70 18 108/66 96 Room Air 75 126/72 84 118/74 11/03/17 18:27 66 18 118/82 98 Room Air 11/03/17 15:56 97 Room Air 11/03/17 15:52 36.7 83 20 112/78 99 Room Air Physical Exam GENERAL: Awake, alert, well-appearing, NAD HENT: Normocephalic, atraumatic. Posterior pharynx clear with no tonsillar or uvular swelling EYES: Normal conjunctiva. Sclera non-icteric. PERRL. No anisocoria. NECK: Supple. No nuchal rigidity. FROM. non-stridulous RESPIRATORY: CTAB, no rhonchi, wheezing, crackles CARDIAC: RRR, no MRG ABDOMEN: Soft, NTND, BS+, RLQ ostomy bag placed MSK: No chest wall TTP, no LE edema, no calf pain, negative Marianne's sign, no lower extremity asymmetry NEURO: GCS 15, CN 2-12 intact, moves all 4s on command SKIN: No rash or jaundice noted. Medical Decision & Procedures Medications Administered Medications (Trade) Dose Ordered Sig/Natalio Route Start Time Stop Time Status Last Admin Dose Admin Albuterol/ Ipratropium (Duoneb) 3 ml ONE STAT INH 11/03/17 16:21 11/03/17 16:23 DC 11/03/17 16:48 3 ML Lorazepam (Ativan Tab) 1 mg NOW STAT SL 11/03/17 17:19 11/03/17 17:20 DC 11/03/17 17:24 1 MG Lorazepam (Ativan Tab) 1 mg NOW STAT PO 11/03/17 17:42 11/03/17 17:43 DC 11/03/17 18:31 1 MG ECG Per My Interpretation Indication: chest pain Rate (beats per minute): 71 Rhythm: normal sinus Findings: other (Normal axis, normal intervals, no sts changes, no TWI) ED Course 1604: The patient was evaluated in room C5. A complete history and physical exam was performed. Past records reveal a negative CXR and VQ scan along with normal H&H levels. 1719: I reevaluated the patient and she is jittery 1800: The patient was signed out to Dr. Rivera pending ultrasound results. If results are negative, the patient is ready for discharge. Medical Decision Nursing notes reviewed. Ancillary studies and prior records reviewed. Differential diagnosis: Etiologies such as infections, reactive airway disease, pneumonia, pneumothorax , COPD, CHF, cardiac ischemia, pulmonary embolism, musculoskeletal, gastrointestinal, as well as others were entertained. Patient was seen and evaluated the bedside. The patient was recently seen here on Thursday where she had fairly extensive examination including blood work and advanced imaging which included a VQ scan. VQ scan was low probability and the patient had fairly unremarkable blood work. The patient had a normal chest x- ray. The patient had a normal H&H and the patient denies that she has had any bloody stools even though she has a history of Crohn's. On exam the patient is a clear posterior pharynx is non-stridulous. I do not believe that she has an upper airway problem. Patient's lungs sound clear. I do not believe that she requires repeat imaging given that she has had persistent symptoms since that time. The patient did have an EKG completed which did not show anything that was remarkable. The patient furthermore was referred here for DVT imaging. The patient does not have any lower extremity asymmetry has a negative Homans sign. There is no evidence of any cellulitic change. Patient was given a DuoNeb treatment. Given her recent imaging studies and blood work that is very reassuring I do not believe she requires any repeat imaging of this nature at this time. DVT imaging pending. I did complete a bedside ultrasound which showed normal caliber of the aorta that was 1.4 cm in diameter. The patient had no evidence of pericardial effusion. Have good squeeze and a normal EF. I did state to the patient that if she was still having symptoms she could consider a formal echocardiogram. The patient otherwise is well-appearing and was pending a DVT ultrasound studies. I did sign her out to the evening physician Dr. Rivera pending further evaluation and disposition. Medication Reconcilliation Current Medication List: was personally reviewed by me Blood Pressure Screening Patient's blood pressure: Normal blood pressure Impression Primary Impression: SOB (shortness of breath) Scribe Attestation The scribe's documentation has been prepared under my direction and personally reviewed by me in its entirety. I confirm that the note above accurately reflects all work, treatment, procedures, and medical decision making performed by me. Departure Information Dispostion Home / Self-Care Prescriptions Albuterol (Ventolin Hfa) 60 Puffs/5400 Mcg Aers 2 PUFFS INH QID Y for SOB/Wheezing for 5 Days, #1 INHALER Prov: Saul Chirinos M.D. 11/03/17 Referrals [facility] (PCP) Forms HOME CARE DOCUMENTATION FORM, IMPORTANT VISIT INFORMATION Patient Instructions Anxiety Body Response, ED Dyspnea Shortness of Breath, My [facility] Additional Instructions Please return to the emergency department if you have worsening or recurrent symptoms not amenable to at-home treatment. Please call for a follow-up appointment with her primary care physician. Please take your medications as prescribed. If you have other concerns and/or complaints please feel free to also call your primary care physician's office or return the ED for further evaluation, management, and treatment. You may take 600 mg Ibuprofen every 6 hours as needed for pain/fever with food unless told by your physician not to take NSAIDs. You may take tylenol 650 mg every 6 hours as needed for pain/fever unless told by your physician to not take it or have liver problems. You may take motrin and tylenol separately or at the same time. Take your medications as prescribed. Please use the inhalers 2 puffs every 4 hours the first day, then 2 puffs every 6 hours second day, 1 puff every 4 hours the third day, and then 1 puff every 6 hours the fourth day. You may then use as needed. Make sure to use your inhaler with a spacer when you use it. You have been examined and treated today on an emergency basis only. This is not a substitute for, or an effort to provide, complete comprehensive medical care. It is impossible to recognize and treat all injuries or illnesses in a single emergency department visit. It is therefore important that you follow up closely with [facility], your PCP, and/or your specialist(s). Call as soon as possible for an appointment. Thank you for your time and consideration. I look forward to speaking with you again soon. Please don't hesitate to call us if you have any questions.
[2017-11-03] MEDS ORDERED: ALBUT/IPRATROP 3MG/0.5MG NEB 3 ML VIAL INH STA (16:21)
[2017-11-03] MEDS ORDERED: PRVHFAIN INH (17:11)
[2017-11-03] MEDS ORDERED: LORAZEPAM 1 MG TAB SL STA (17:19)
[2017-11-03] MEDS ORDERED: LORAZEPAM 1 MG TAB PO STA (17:42)
--- NOTE | 2017-11-03 18:25 | DIAGNOSTIC IMAGING REPORT ---
VENOUS DOPPLER LWR EXT BILA CLINICAL HISTORY: 27 years-old Female presenting with persistent SOB, recent plane travel, IUD in place. TECHNIQUE: Real-time grayscale and color and spectral Doppler ultrasound imaging of the veins of the bilateral lower extremities was performed. Compression and augmentation were also utilized. COMPARISON: None. FINDINGS: Right: Common femoral vein: Patent. Greater saphenous vein: Patent. Deep femoral vein: Patent. Femoral vein: Patent. Popliteal vein: Patent. Calf veins: Patent. Left: Common femoral vein: Patent. Greater saphenous vein: Patent. Deep femoral vein: Patent. Femoral vein: Patent. Popliteal vein: Patent. Calf veins: Patent. Other: None. IMPRESSION: No evidence of deep venous thrombosis. Electronically signed by: Hossein Mcmanus M.D. 11/03/2017 6:24 PM Dictated Date/Time: 11/03/2017 6:23 PM
--- NOTE | 2017-11-03 19:24 | EMERGENCY ROOM VISIT NOTE ---
ED Visit Note First contact with patient: 19:14 I received this patient at change of shift signout from Dr. Chirinos. Please see his note for complete history and physical. The patient was stable. Vital signs are reviewed. The patient had an ultrasound report pending. The report is reviewed. [~ rep ct add3]] VENOUS DOPPLER LWR EXT BILA CLINICAL HISTORY: 27 years-old Female presenting with persistent SOB, recent plane travel, IUD in place. TECHNIQUE: Real-time grayscale and color and spectral Doppler ultrasound imaging of the veins of the bilateral lower extremities was performed. Compression and augmentation were also utilized. COMPARISON: None. FINDINGS: Right: Common femoral vein: Patent. Greater saphenous vein: Patent. Deep femoral vein: Patent. Femoral vein: Patent. Popliteal vein: Patent. Calf veins: Patent. Left: Common femoral vein: Patent. Greater saphenous vein: Patent. Deep femoral vein: Patent. Femoral vein: Patent. Popliteal vein: Patent. Calf veins: Patent. Other: None. IMPRESSION: No evidence of deep venous thrombosis. Electronically signed by: Hossein Mcmanus M.D. 11/03/2017 6:24 PM Dictated Date/Time: 11/03/2017 6:23 PM The patient was advised to continue all medications as prescribed and follow-up with her primary care physician. She was also encouraged to continue to drink plenty clear liquids. She was also encouraged to return to the emergency department immediately if symptoms change worsen or the need arises.
[2017-11-03 19:52] VITALS: BP 120/71; PULSE 90; O2SAT 100
== END 2017-11-03 19:55 | disposition home or self-care (01) ==
LOC: C.EDB 15:50 → C.EDC 19:55
DX: R06.02 Shortness of breath (principal); J45.909 Unspecified asthma, uncomplicated; K50.90 Crohn's disease, unspecified, without complications; F41.9 Anxiety disorder, unspecified; F32.9 Major depressive disorder, single episode, unspecified; Z93.3 Colostomy status; Z79.899 Other long term (current) drug therapy; Z91.041 Radiographic dye allergy status; Z88.8 Allergy status to other drugs, medicaments and biological substances